=== PATIENT | female | born 1985 | race Caucasian/White ===

== ENCOUNTER 2017-04-25 23:00 | Emergency (ER) | payer SELFPAY ==
[~2017-04-25] VITALS: Ht 152.4 cm; Wt 58.1 kg
[2017-04-25 23:05] VITALS: BP 144/95
--- NOTE | 2017-04-25 23:21 | NUR ---
PT TAKEN TO BED 6
--- NOTE | 2017-04-25 23:26 | NUR ---
31 Y/O F W/C/O BILATERAL EAR PAIN X 7 WKS. PT STATES FEELS ANIMAL WALKING IN AND OUT OF HER EAR. NO S/S OF DISTRESS NOTED ER MADE AWARE.
--- NOTE | 2017-04-25 23:27 | NUR ---
Dr. Rabago evaluating patient at bedside.
[2017-04-25 23:40] VITALS: BP 140/99
--- NOTE | 2017-04-25 23:40 | NUR ---
Patient discharged STABLE, ER MD AWARE OF VS. Written and verbal after care instructions given and explained. Patient alert, oriented and verbalized understanding of instructions. Ambulatory with steady gait. All questions addressed prior to discharge. ID band removed. Patient advised to follow up with PMD OR RETURN TO ER IF CONDITION WORSENS. Rx of AURALGAN OTIC SOLU given. Patient educated on indication of medication including possible reaction and side effects. Opportunity to ask questions provided and answered.
== END 2017-04-25 23:40 | disposition home or self-care (01) ==
LOC: MED 23:00 → EDBD 23:00 → MED 23:40
DX: H92.03 Otalgia, bilateral (principal); R03.0 Elevated blood-pressure reading, without diagnosis of hypertension; Z71.6 Tobacco abuse counseling
CPT/HCPCS: 99283